=== PATIENT | male | born 1960 | race Two or more races ===

== ENCOUNTER 2022-08-02 12:13 | Emergency (ER) | payer MEDICAID ==
[~2022-08-02] VITALS: Ht 185.4 cm; Wt 104.5 kg
[2022-08-02] MEDS ORDERED: FUROSEMIDE 100 MG/10ML VIAL IV ONE (12:30)
[2022-08-02 12:55] LABS: Basophils # (auto) 0.1 10 ^3/uL (0-0.2); Eosinophils # (auto) 0.2 10 ^3/uL (0-0.8); Eosinophils % (auto) 2.5 % (0.0-7.0); Hemoglobin 13.8 g/dL (13.5-17.5); Monocytes # (auto) 0.9 10 ^3/uL (0-1.3); Nucleated Red Blood Cells % 0.1 %
[2022-08-02 12:57] LABS: Basophils % (auto) 0.8 % (0.0-2.0); Lymphocytes % (auto) 26.7 % (10.0-50.0); Mean Corpuscular Hemoglobin 21.9 pg (28.0-32.0); Mean Corpuscular Hgb Conc. 32.1 g/dL (32.0-36.0); Mean Corpuscular Volume 68.2 fL (80.0-100.0); Monocytes % (auto) 12.3 % (0.0-12.0); Neutrophils # (auto) 4.2 10 ^3/uL (1.6-8.6); Neutrophils % (auto) 57.7 % (37.0-80.0); Red Cell Distribution Width 19.1 % (11.8-14.3); White Blood Cell 7.3 10^3/uL (4.4-10.8)
[2022-08-02 13:11] LABS: Albumin 3.5 g/dL (3.4-5.0); Calcium 8.4 mg/dL (8.5-10.1)
[2022-08-02 13:15] LABS: BUN/Creatinine Ratio 17.6; Bilirubin, Total 1.3 mg/dL (0.2-1.0); Total Protein 7.2 g/dL (6.4-8.2)
[2022-08-02] MEDS ORDERED: IOHEXOL 350 MG/ML 100ML IJ ONE (17:08)
[2022-08-02] MEDS ORDERED: FURO1TAB33 PO (19:19)
[2022-08-02 19:55] VITALS: BP 121/84
== END 2022-08-02 19:59 | disposition home or self-care (01) ==
LOC: ER 12:13
DX: I11.0 Hypertensive heart disease with heart failure (principal); I50.9 Heart failure, unspecified; E78.5 Hyperlipidemia, unspecified; E11.9 Type 2 diabetes mellitus without complications; Z20.822 Contact with and (suspected) exposure to COVID-19
CPT/HCPCS: 36415; 71045; 71275; 80053; 82962; 83880; 84484; 85025; 85379; 87426; 93005; 96374; 99285; J1940; Q9967

== ENCOUNTER 2022-08-11 15:22 | Emergency (ER) | payer MEDICAID ==
[~2022-08-11] VITALS: Ht 185.4 cm; Wt 105.4 kg
[~2022-08-11 15:22] MED LIST: FURO1TAB33 PO
[2022-08-11 15:30] VITALS: BP 125/95
[2022-08-11] MEDS ORDERED: KETOROLAC TROMETH 60MG/2ML VIAL IM ONE (15:30)
[2022-08-11 16:06] LABS: Basophils # (auto) 0.1 10 ^3/uL (0-0.2); Eosinophils # (auto) 0.1 10 ^3/uL (0-0.8); Eosinophils % (auto) 1.8 % (0.0-7.0); Nucleated Red Blood Cells % 0.1 %
[2022-08-11 16:08] LABS: Hematocrit 47.6 % (41.0-53.0); Hemoglobin 15.5 g/dL (13.5-17.5); Lymphocytes # (auto) 1.5 10 ^3/uL (0.4-5.4); Lymphocytes % (auto) 18.2 % (10.0-50.0); Mean Corpuscular Hemoglobin 22.1 pg (28.0-32.0); Mean Corpuscular Hgb Conc. 32.5 g/dL (32.0-36.0); Monocytes # (auto) 0.9 10 ^3/uL (0-1.3); Monocytes % (auto) 10.7 % (0.0-12.0); Neutrophils # (auto) 5.5 10 ^3/uL (1.6-8.6); Neutrophils % (auto) 68.3 % (37.0-80.0); Red Cell Distribution Width 18.1 % (11.8-14.3)
[2022-08-11 16:21] LABS: Albumin 3.3 g/dL (3.4-5.0); Calcium 9.6 mg/dL (8.5-10.1); Potassium 4.7 mmol/L (3.5-5.1)
[2022-08-11 16:23] LABS: Bilirubin, Total 0.6 mg/dL (0.2-1.0); Total Protein 8.3 g/dL (6.4-8.2)
[2022-08-11 16:26] LABS: BUN/Creatinine Ratio 22.9
[2022-08-11] MEDS ORDERED: HYDROcodone-ACET 5/325MG TAB PO ONE (18:30)
[2022-08-11] MEDS ORDERED: NEOMYCIN-BACITRACIN-POLYM 15GM TOP OINT TOP SCH (22:00)
[2022-08-11] MEDS ORDERED: ACETAMINOPHEN 325 MG TAB PO PRN (23:00)
[2022-08-11] MEDS ORDERED: MORPHINE SULFATE INJ 2 MG/ml SYRG IV PRN (23:00)
[2022-08-11] MEDS ORDERED: ONDANSETRON HCL 4 MG/2 ML VIAL IV PRN (23:00)
[2022-08-11] MEDS ORDERED: DEXTROSE (50%) 50ML SYRG IV PRN (23:00)
[2022-08-11] MEDS ORDERED: VANCOMYCIN PER PHARMACY 0 MG IV SCH (23:00)
[2022-08-11] MEDS ORDERED: SODIUM CHLORIDE 0.9% 1,000 ML IV SCH (23:00)
[2022-08-11] MEDS ORDERED: HYDROcodone-ACET 5/325MG TAB PO PRN (23:00)
[2022-08-11] MEDS ORDERED: DOCUSATE SOD 100 MG CAP PO PRN (23:00)
[2022-08-11] MEDS ORDERED: CARVEDILOL 3.125 MG TAB PO SCH (23:07)
[2022-08-11] MEDS ORDERED: ATORVASTATIN 20 MG TAB PO SCH (23:07)
[2022-08-11] MEDS ORDERED: InsuLIN REG 1unit/0.01ml Soln (100units/ml) SC SCH (23:08)
[2022-08-11] MEDS ORDERED: VANCOMYCIN 1GM/250ML 250 ML IV ONE (23:15)
[2022-08-12] MEDS ORDERED: ACCU-CHEK COMFORT CURVE STRIP VI SCH (07:00)
[2022-08-12] MEDS ORDERED: InsuLIN REG 1unit/0.01ml Soln (100units/ml) SC SCH (07:00)
[2022-08-12] MEDS ORDERED: ASPirin 81 mg TAB PO SCH (10:00)
[2022-08-12] MEDS ORDERED: ZINC SULFATE 220mg CAP or TAB PO SCH (10:00)
[2022-08-12] MEDS ORDERED: ASCORBIC ACID 500 MG TAB PO SCH (10:00)
== END 2022-08-11 23:20 | disposition left against medical advice (07) ==
LOC: ER 15:22
DX: M86.9 Osteomyelitis, unspecified (principal); I11.0 Hypertensive heart disease with heart failure; I50.9 Heart failure, unspecified; E11.9 Type 2 diabetes mellitus without complications; E78.5 Hyperlipidemia, unspecified; Z79.899 Other long term (current) drug therapy
CPT/HCPCS: 36415; 73630; 80053; 83605; 83690; 83880; 85025; 96372; 99284; J1885